=== PATIENT | female | born 1935 | race Caucasian/White ===

== ENCOUNTER → 2016-10-22 | Outpatient (CLI) | payer MEDICARE, OTHER ==
[~2016-10-22] MED LIST: ASPIRIN 81M81 MG/TA2 PO; CEPHALEXIN500 M1 PO; K-DUR20 MEQ PO; LASIX 20MG TABL20 MG PO; LOTENSIN40 MG PO; NORVASC 10MG10 MG PO; PREDNISONE20 MG PO; SYNTHROID0.1 MG/TAB PO; ZYLOPRIM 300MG300 MG; ZYLOPRIM 300MG300 MG PO
== END ==
LOC: MC.RAD 09:33
DX: Z12.31 Encounter for screening mammogram for malignant neoplasm of breast (principal)

== ENCOUNTER 2017-01-06 06:30 | Day surgery (SDC) | payer MEDICARE, OTHER ==
[~2017-01-06] VITALS: Ht 152.4 cm; Wt 90.0 kg
[~2017-01-06 06:30] MED LIST changes: -CEPHALEXIN500 M1 PO; -PREDNISONE20 MG PO; -ZYLOPRIM 300MG300 MG PO
[2017-01-06 07:21] VITALS: BP 148/92; PULSE 55; TEMP 97.1
[2017-01-06 07:25] LABS: HEMATOCRIT 41.2 % (37.0-47.0); HEMOGLOBIN 12.8 g/dl (12.5-16.0); MEAN CELL VOLUME 94 fl (80.0-100.0); MEAN CORPUSCULAR HEMOGLOBIN 29 pg (27.0-31.0); MEAN CORPUSCULAR HGB CONC 31 g/dl (33.0-37.0); MEAN PLATELET VOLUME 10.4 fl (7.4-10.4); PLATELET COUNT 251 K/mm3 (130-400); RED BLOOD COUNT 4.37 M/mm3 (4.10-5.30); REDCELL DISTRIBUTION WIDTH-CV 14.1 % (11.5-14.5); WHITE BLOOD COUNT 6.5 K/mm3 (4.8-10.8)
[2017-01-06 07:32] LABS: PROTHROMBIN TIME 11.6 SECONDS (9.7-12.8)
[2017-01-06] MEDS ORDERED: K-DUR20 MEQ PO (07:38)
[2017-01-06] MEDS ORDERED: LASIX 20MG TABL20 MG PO (07:38)
[2017-01-06 07:39] LABS: CALCIUM 10.4 mg/dL (8.4-10.2); CREATININE, serum 1.15 mg/dL (0.52-1.25); POTASSIUM 3.9 mmol/L (3.4-5.0)
[2017-01-06] MEDS ORDERED: LOTENSIN40 MG PO (07:39)
[2017-01-06] MEDS ORDERED: ZYLOPRIM 300MG300 MG PO (07:40)
[2017-01-06] MEDS ORDERED: SYNTHROID0.1 MG/TAB PO (07:41)
[2017-01-06] MEDS ORDERED: NORVASC 10MG10 MG PO (07:43)
[2017-01-06 09:11] VITALS: BP 175/84; PULSE 62
[2017-01-06] MEDS ORDERED: CEPHALEXIN500 M1 PO (10:10)
== END 2017-01-06 12:30 | disposition home or self-care (01) ==
LOC: COL.RAD 06:30 → EUO 06:30 → COL.RAD 07:00 → EUO 12:30
PROVIDERS: Internal Medicine Cardiovascular Disease
DX: Z45.010 Encounter for checking and testing of cardiac pacemaker pulse generator [battery] (principal); I48.91 Unspecified atrial fibrillation; R06.02 Shortness of breath
CPT/HCPCS: C1786; J0690; J2250; J3010

== ENCOUNTER 2017-06-27 08:41 | Emergency (ER) | payer MEDICARE, OTHER ==
[~2017-06-27] VITALS: Ht 152.4 cm; Wt 87.3 kg
[~2017-06-27 08:41] MED LIST changes: +CEPHALEXIN500 M1 PO; +ZYLOPRIM 300MG300 MG PO
[2017-06-27 08:43] VITALS: TEMP 97.6
[2017-06-27 09:36] LABS: BASO # 0.1 (0.0-0.2); BASO % 0.6 % (0.0-2.0); EOS # 0.2 (0.0-0.7); EOS % 2.2 % (0-4.0); GRAN # 6.1 (1.4-6.5); GRAN % 74.3 % (42.2-75.2); HEMATOCRIT 44.7 % (37.0-47.0); HEMOGLOBIN 14.5 g/dl (12.5-16.0); LYMPH # 0.8 (1.2-3.4); LYMPH % 9.5 % (20.0-51.0); MEAN CELL VOLUME 94 fl (80.0-100.0); MEAN CORPUSCULAR HEMOGLOBIN 31 pg (27.0-31.0); MEAN CORPUSCULAR HGB CONC 32 g/dl (33.0-37.0); MEAN PLATELET VOLUME 10.1 fl (7.4-10.4); MONO # 1.1 (0.1-0.6); MONO % 13.2 % (1.7-9.3); PLATELET COUNT 214 K/mm3 (130-400); RED BLOOD COUNT 4.76 M/mm3 (4.10-5.30); REDCELL DISTRIBUTION WIDTH-CV 14.1 % (11.5-14.5); WHITE BLOOD COUNT 8.2 K/mm3 (4.8-10.8)
[2017-06-27 09:45] LABS: CALCIUM 10.8 mg/dL (8.4-10.2); CREATININE, serum 1.01 mg/dL (0.52-1.25); POTASSIUM 3.9 mmol/L (3.4-5.0)
[2017-06-27] MEDS ORDERED: PREDNISONE20 MG PO (09:58)
[2017-06-27 11:02] VITALS: BP 178/80; PULSE 60
== END 2017-06-27 11:03 | disposition home or self-care (01) ==
LOC: COL.ER 08:41
PROVIDERS: Emergency Medicine
DX: M25.571 Pain in right ankle and joints of right foot (principal); M79.671 Pain in right foot; I48.91 Unspecified atrial fibrillation; I10 Essential (primary) hypertension; M10.9 Gout, unspecified; Z79.82 Long term (current) use of aspirin; Z95.0 Presence of cardiac pacemaker

== ENCOUNTER 2017-11-06 10:13 | Emergency (ER) | payer MEDICARE, OTHER ==
[~2017-11-06] VITALS: Ht 152.4 cm; Wt 89.1 kg
[~2017-11-06 10:13] MED LIST changes: +PREDNISONE20 MG PO
[2017-11-06 10:16] VITALS: TEMP 98.6
[2017-11-06 11:54] LABS: BASO # 0.1 (0.0-0.2); BASO % 0.7 % (0.0-2.0); EOS # 0.2 (0.0-0.7); GRAN # 5.4 (1.4-6.5); GRAN % 74.2 % (42.2-75.2); HEMATOCRIT 39.1 % (37.0-47.0); HEMOGLOBIN 11.9 g/dl (12.5-16.0); LYMPH # 0.7 (1.2-3.4); LYMPH % 9.8 % (20.0-51.0); MEAN CELL VOLUME 98 fl (80.0-100.0); MEAN CORPUSCULAR HEMOGLOBIN 30 pg (27.0-31.0); MEAN CORPUSCULAR HGB CONC 30 g/dl (33.0-37.0); MEAN PLATELET VOLUME 10.3 fl (7.4-10.4); MONO # 0.9 (0.1-0.6); PLATELET COUNT 250 K/mm3 (130-400); RED BLOOD COUNT 3.98 M/mm3 (4.10-5.30); REDCELL DISTRIBUTION WIDTH-CV 14.5 % (11.5-14.5)
[2017-11-06 12:05] LABS: ALBUMIN 3.5 gm/dL (3.5-5.0); BILIRUBIN,TOTAL 0.6 mg/dL (0.0-1.0); C-REACTIVE PROTEIN 3.1 mg/dL (0.0-0.9); CALCIUM 10.3 mg/dL (8.4-10.2); CREATININE, serum 0.97 mg/dL (0.52-1.25); POTASSIUM 4.1 mmol/L (3.4-5.0); TOTAL PROTEIN 6.8 gm/dL (6.4-8.2)
[2017-11-06] MEDS ORDERED: CEPHALEXIN500 M1 PO (12:52)
[2017-11-06 13:06] VITALS: BP 170/91; PULSE 60
== END 2017-11-06 13:07 | disposition home or self-care (01) ==
LOC: COL.ER 10:13
PROVIDERS: Emergency Medicine
DX: L03.116 Cellulitis of left lower limb (principal); Z79.82 Long term (current) use of aspirin

== ENCOUNTER → 2017-11-23 | Outpatient (CLI) | payer MEDICARE, OTHER | LOC: MC.RAD 11-22 13:20 | DX: Z12.31 Encounter for screening mammogram for malignant neoplasm of breast (principal) ==

== ENCOUNTER 2018-04-08 11:30 | Inpatient (IN) | payer MEDICARE, OTHER ==
[~2018-04-08] VITALS: Ht 147.3 cm; Wt 93.9 kg
[2018-04-08 11:57] LABS: BASO # 0.1 (0.0-0.2); EOS # 0.2 (0.0-0.7); EOS % 2.8 % (0-4.0); GRAN # 4.9 (1.4-6.5); GRAN % 69.8 % (42.2-75.2); HEMATOCRIT 38.3 % (37.0-47.0); LYMPH # 0.8 (1.2-3.4); LYMPH % 11.6 % (20.0-51.0); MEAN CELL VOLUME 88 fl (80.0-100.0); MEAN CORPUSCULAR HEMOGLOBIN 25 pg (27.0-31.0); MEAN CORPUSCULAR HGB CONC 29 g/dl (33.0-37.0); MEAN PLATELET VOLUME 9.9 fl (7.4-10.4); MONO % 13.9 % (1.7-9.3); PLATELET COUNT 307 K/mm3 (130-400); RED BLOOD COUNT 4.34 M/mm3 (4.10-5.30); REDCELL DISTRIBUTION WIDTH-CV 17.1 % (11.5-14.5)
[2018-04-08 12:02] LABS: INR 3.3 (0.8-3.0); PROTHROMBIN TIME 38.1 SECONDS (9.7-12.8)
[2018-04-08 12:05] LABS: ALBUMIN 3.7 gm/dL (3.5-5.0); BILIRUBIN,TOTAL 0.7 mg/dL (0.0-1.0); CALCIUM 10.4 mg/dL (8.4-10.2); CREATININE, serum 1.22 mg/dL (0.52-1.25); POTASSIUM 4.4 mmol/L (3.4-5.0); TOTAL PROTEIN 8.4 gm/dL (6.4-8.2)
[2018-04-08 12:17] LABS: TROPONIN-I 0.017 ng/mL (0.000-0.034)
[2018-04-08] MEDS ORDERED: NORVASC 10MG10 MG PO (12:17)
[2018-04-08] MEDS ORDERED: DESOWEN0.05% TOP (12:19)
[2018-04-08] MEDS ORDERED: COLACE 100100 MG/CAP PO (12:19)
[2018-04-08] MEDS ORDERED: LASIX 20MG TABL20 MG PO (12:21)
[2018-04-08] MEDS ORDERED: TOPROL XL 50MG50 MG PO (12:25)
[2018-04-08] MEDS ORDERED: MULTI VITAMINS1 TAB PO (12:26)
[2018-04-08] MEDS ORDERED: K-DUR 10 MEQ T10 MEQ PO (12:27)
[2018-04-08] MEDS ORDERED: TRIAMCINOLONE A15 GM TOP (12:28)
[2018-04-08 12:47] LABS: COLLECTION METHOD CATHETER
[2018-04-08 13:01] LABS: PARTIAL THROMBOPLASTIN TIME 228.9 SECONDS (26.0-37.0)
[2018-04-08 13:02] LABS: MUCOUS Present /lpf; PH 7 (5-8); SQUAMOUS EPITHELIAL 0-2 /hpf; URINE APPEARANCE Clear; URINE BACTERIA None Seen /hpf; URINE BILIRUBIN Negative (NEGATIVE); URINE BLOOD Negative (NEGATIVE); URINE COLOR Yellow; URINE GLUCOSE Negative (NEGATIVE); URINE KETONE Negative (NEGATIVE); URINE LEUKOCYTE ESTERASE Negative (NEGATIVE); URINE NITRATE Negative (NEGATIVE); URINE PROTEIN(semi-quant) Negative (NEGATIVE); URINE RBC 0-2 /hpf; URINE UROBILINOGEN Negative (NEGATIVE)
[2018-04-08 16:10] VITALS: BP 153/68; PULSE 60; TEMP 98.2
[2018-04-08 16:50] LABS: TSH w REFLEX 8.29 uIU/mL (0.465-4.680)
[2018-04-08 19:24] VITALS: BP 132/89; PULSE 59; TEMP 98
[2018-04-08 23:57] VITALS: BP 152/66; PULSE 60; TEMP 97.5
[2018-04-09 04:18] VITALS: BP 153/87; PULSE 59; TEMP 98.3
[2018-04-09 06:34] LABS: BASO # 0.1 (0.0-0.2); BASO % 0.9 % (0.0-2.0); EOS # 0.3 (0.0-0.7); EOS % 5.6 % (0-4.0); GRAN # 3.6 (1.4-6.5); GRAN % 64.5 % (42.2-75.2); HEMOGLOBIN 10.1 g/dl (12.5-16.0); LYMPH # 0.7 (1.2-3.4); MEAN CELL VOLUME 90 fl (80.0-100.0); MEAN CORPUSCULAR HEMOGLOBIN 26 pg (27.0-31.0); MEAN CORPUSCULAR HGB CONC 29 g/dl (33.0-37.0); MEAN PLATELET VOLUME 10.2 fl (7.4-10.4); MONO # 0.9 (0.1-0.6); MONO % 15.6 % (1.7-9.3); PLATELET COUNT 300 K/mm3 (130-400); RED BLOOD COUNT 3.93 M/mm3 (4.10-5.30); REDCELL DISTRIBUTION WIDTH-CV 17.1 % (11.5-14.5)
[2018-04-09 06:46] LABS: HEMATOCRIT 35.3 % (37.0-47.0)
[2018-04-09 06:54] LABS: CALCIUM 9.6 mg/dL (8.4-10.2); CREATININE, serum 1.25 mg/dL (0.52-1.25); MAGNESIUM 2.2 mg/dL (1.6-2.3); POTASSIUM 4.3 mmol/L (3.4-5.0)
[2018-04-09 07:17] LABS: INR 3.3 (0.8-3.0); PROTHROMBIN TIME 37.2 SECONDS (9.7-12.8)
[2018-04-09 07:54] VITALS: BP 140/57; PULSE 60; TEMP 98.2
[2018-04-09 12:26] VITALS: BP 124/59; PULSE 61; TEMP 98.2
[2018-04-09 16:12] VITALS: BP 120/75; PULSE 60; TEMP 98.8
[2018-04-09 19:11] VITALS: BP 122/63; PULSE 61; TEMP 98.4
[2018-04-10 00:22] VITALS: PULSE 60; TEMP 98
[2018-04-10 03:49] VITALS: BP 128/52; PULSE 59; TEMP 98.7
[2018-04-10 07:08] LABS: MEAN CELL VOLUME 90 fl (80.0-100.0); MEAN CORPUSCULAR HGB CONC 28 g/dl (33.0-37.0); MEAN PLATELET VOLUME 10.6 fl (7.4-10.4); PLATELET COUNT 299 K/mm3 (130-400); RED BLOOD COUNT 3.86 M/mm3 (4.10-5.30); REDCELL DISTRIBUTION WIDTH-CV 17.1 % (11.5-14.5)
[2018-04-10 07:09] LABS: HEMATOCRIT 34.9 % (37.0-47.0); HEMOGLOBIN 9.8 g/dl (12.5-16.0); MEAN CORPUSCULAR HEMOGLOBIN 25 pg (27.0-31.0)
[2018-04-10 07:13] LABS: INR 3.2 (0.8-3.0); PROTHROMBIN TIME 36.8 SECONDS (9.7-12.8)
[2018-04-10 07:26] LABS: BILIRUBIN,TOTAL 0.5 mg/dL (0.0-1.0); CALCIUM 9.2 mg/dL (8.4-10.2); CREATININE, serum 1.27 mg/dL (0.52-1.25); MAGNESIUM 2.2 mg/dL (1.6-2.3); POTASSIUM 4.4 mmol/L (3.4-5.0); TOTAL PROTEIN 6.6 gm/dL (6.4-8.2)
[2018-04-10 07:44] LABS: BAND 2 % (0-10); BASOPHIL 1 % (0-2); EOSINOPHIL 4 % (0-4); LYMPHOCYTE 8 % (20.0-51.0); NEUTROPHILS 73 % (42.0-75.2)
[2018-04-10 07:45] LABS: ANISOCYTOSIS 1+; HYPOCHROMIA 3+; PLATELET ESTIMATE NORMAL (NORMAL)
[2018-04-10 07:51] VITALS: BP 131/57; PULSE 61; TEMP 98.3
[2018-04-10 12:47] VITALS: BP 116/51; PULSE 61; TEMP 98.3
[2018-04-10 16:34] VITALS: BP 124/52; PULSE 59; TEMP 98.4
[2018-04-10 20:18] VITALS: BP 128/55; PULSE 81
[2018-04-11 00:29] VITALS: BP 112/49; PULSE 59; TEMP 98.1
[2018-04-11 03:44] VITALS: BP 132/55; PULSE 60; TEMP 98.1
[2018-04-11 07:06] LABS: HEMOGLOBIN 10.2 g/dl (12.5-16.0); MEAN CELL VOLUME 89 fl (80.0-100.0); MEAN CORPUSCULAR HEMOGLOBIN 26 pg (27.0-31.0); MEAN CORPUSCULAR HGB CONC 29 g/dl (33.0-37.0); MEAN PLATELET VOLUME 10.2 fl (7.4-10.4); PLATELET COUNT 287 K/mm3 (130-400); RED BLOOD COUNT 3.98 M/mm3 (4.10-5.30); REDCELL DISTRIBUTION WIDTH-CV 16.9 % (11.5-14.5)
[2018-04-11 07:11] LABS: HEMATOCRIT 35.4 % (37.0-47.0)
[2018-04-11 07:22] LABS: CALCIUM 9.5 mg/dL (8.4-10.2); CREATININE, serum 1.29 mg/dL (0.52-1.25); POTASSIUM 4.3 mmol/L (3.4-5.0)
[2018-04-11 07:24] LABS: PROTHROMBIN TIME 33.7 SECONDS (9.7-12.8)
[2018-04-11 07:55] VITALS: BP 132/57; PULSE 61; TEMP 98.1
[2018-04-11 08:32] LABS: BAND 4 % (0-10); BASOPHIL 2 % (0-2); EOSINOPHIL 4 % (0-4); LYMPHOCYTE 10 % (20.0-51.0); NEUTROPHILS 65 % (42.0-75.2)
[2018-04-11 08:33] LABS: PLATELET ESTIMATE NORMAL (NORMAL)
[2018-04-11 08:34] LABS: HYPOCHROMIA 3+
[2018-04-11 11:44] VITALS: BP 114/46; PULSE 59; TEMP 98.6
[2018-04-11 14:56] LABS: LUPUS ANTICOAGULANT INR 3.6 (()); LUPUS ANTICOAGULANT PT 40.3 sec (())
[2018-04-11 15:24] VITALS: BP 125/49; PULSE 62; TEMP 97.8
[2018-04-11 19:32] VITALS: BP 130/58; PULSE 62; TEMP 98.4
[2018-04-12 00:30] VITALS: BP 133/51; PULSE 59; TEMP 98.6
[2018-04-12 03:35] VITALS: PULSE 62; TEMP 98.1
[2018-04-12 07:32] LABS: BASO # 0.1 (0.0-0.2); BASO % 0.8 % (0.0-2.0); EOS # 0.3 (0.0-0.7); EOS % 5.4 % (0-4.0); GRAN # 4.2 (1.4-6.5); GRAN % 69.9 % (42.2-75.2); LYMPH # 0.6 (1.2-3.4); LYMPH % 9.7 % (20.0-51.0); MEAN CELL VOLUME 91 fl (80.0-100.0); MEAN CORPUSCULAR HEMOGLOBIN 25 pg (27.0-31.0); MEAN CORPUSCULAR HGB CONC 28 g/dl (33.0-37.0); MEAN PLATELET VOLUME 10.4 fl (7.4-10.4); MONO # 0.9 (0.1-0.6); PLATELET COUNT 318 K/mm3 (130-400); RED BLOOD COUNT 3.95 M/mm3 (4.10-5.30); REDCELL DISTRIBUTION WIDTH-CV 16.9 % (11.5-14.5)
[2018-04-12 07:36] LABS: HEMATOCRIT 35.9 % (37.0-47.0)
[2018-04-12 07:40] LABS: CALCIUM 9.7 mg/dL (8.4-10.2); CREATININE, serum 1.21 mg/dL (0.52-1.25); POTASSIUM 4.3 mmol/L (3.4-5.0)
[2018-04-12 07:59] VITALS: BP 131/50; PULSE 78; TEMP 98.4
[2018-04-12 08:59] LABS: INR 2.7 (0.8-3.0)
[2018-04-12 11:01] VITALS: BP 116/59; PULSE 58; TEMP 98.3
[2018-04-12] MEDS ORDERED: ALDACTONE50 MG PO (14:30)
[2018-04-12] MEDS ORDERED: LASIX 40MG TABL40 MG PO (14:31)
== END 2018-04-12 17:38 | disposition home or self-care (01) | DRG 291 ==
LOC: COL.ER 11:30 → MEDICAL 14:01
PROVIDERS: Emergency Medicine; Internal Medicine; Physician Assistant
DX: I11.0 Hypertensive heart disease with heart failure (principal); J18.9 Pneumonia, unspecified organism; J96.01 Acute respiratory failure with hypoxia; J90 Pleural effusion, not elsewhere classified; L03.119 Cellulitis of unspecified part of limb; J44.0 Chronic obstructive pulmonary disease with (acute) lower respiratory infection; I50.33 Acute on chronic diastolic (congestive) heart failure; I27.20 Pulmonary hypertension, unspecified; K59.00 Constipation, unspecified; E83.52 Hypercalcemia; I48.91 Unspecified atrial fibrillation; Z79.82 Long term (current) use of aspirin; E03.9 Hypothyroidism, unspecified; Z66 Do not resuscitate
CPT/HCPCS: 99223-AI; 99232-AI; 99233-AI; 99239; G0378; G8978-GP; G8979-GP; J0456; J0696; J1940; J7050

== ENCOUNTER → 2018-12-07 | Outpatient (CLI) | payer MEDICARE, OTHER ==
[~2018-12-07] MED LIST changes: +ALDACTONE50 MG PO; +COLACE 100100 MG/CAP PO; +DESOWEN0.05% TOP; +K-DUR 10 MEQ T10 MEQ PO; +LASIX 40MG TABL40 MG PO; +MULTI VITAMINS1 TAB PO; +TOPROL XL 50MG50 MG PO; +TRIAMCINOLONE A15 GM TOP
== END ==
LOC: MC.RAD 11:13
DX: Z12.31 Encounter for screening mammogram for malignant neoplasm of breast (principal)

== ENCOUNTER 2019-12-21 10:50 | Inpatient (IN) | payer MEDICARE, OTHER ==
[~2019-12-21] VITALS: Ht 152.4 cm; Wt 87.2 kg
[2019-12-21 12:11] LABS: BASO # 0.1 (0.0-0.2); BASO % 0.6 % (0.0-2.0); EOS # 0.2 (0.0-0.7); EOS % 2.2 % (0-4.0); GRAN # 6.7 (1.4-6.5); GRAN % 80.7 % (42.2-75.2); HEMATOCRIT 39.4 % (37.0-47.0); HEMOGLOBIN 11.6 g/dl (12.5-16.0); LYMPH # 0.6 (1.2-3.4); LYMPH % 7.3 % (20.0-51.0); MEAN CELL VOLUME 94 fl (80.0-100.0); MEAN CORPUSCULAR HEMOGLOBIN 28 pg (27.0-31.0); MEAN CORPUSCULAR HGB CONC 29 g/dl (33.0-37.0); MEAN PLATELET VOLUME 10.2 fl (7.4-10.4); MONO # 0.8 (0.1-0.6); MONO % 9.1 % (1.7-9.3); PLATELET COUNT 257 K/mm3 (130-400); RED BLOOD COUNT 4.19 M/mm3 (4.10-5.30); REDCELL DISTRIBUTION WIDTH-CV 15.8 % (11.5-14.5)
[2019-12-21 12:16] LABS: PROTHROMBIN TIME 12.2 SECONDS (9.7-12.8)
[2019-12-21 12:23] LABS: ALBUMIN 3.9 gm/dL (3.5-5.0); BILIRUBIN,TOTAL 0.7 mg/dL (0.0-1.0); CALCIUM 10.6 mg/dL (8.4-10.2); CREATININE, serum 1.09 (0.52-1.25); TOTAL PROTEIN 7.6 gm/dL (6.4-8.2)
[2019-12-21 12:33] LABS: TROPONIN-I 0.016 ng/mL (0.000-0.035)
[2019-12-21 16:25] VITALS: BP 193/79; PULSE 57; TEMP 97.8
[2019-12-21 21:47] VITALS: BP 162/61; PULSE 59; TEMP 97.7
[2019-12-22] VITALS (8 sets, daily range): BP systolic 154–187; BP diastolic 56–93; PULSE 59–88; TEMP 97.3–98.7
[2019-12-22 06:49] LABS: BASO % 0.2 % (0.0-2.0); GRAN # 7.7 (1.4-6.5); GRAN % 83.8 % (42.2-75.2); HEMATOCRIT 37.8 % (37.0-47.0); HEMOGLOBIN 11.2 g/dl (12.5-16.0); LYMPH # 0.6 (1.2-3.4); LYMPH % 6.7 % (20.0-51.0); MEAN CELL VOLUME 93 fl (80.0-100.0); MEAN CORPUSCULAR HEMOGLOBIN 28 pg (27.0-31.0); MEAN CORPUSCULAR HGB CONC 30 g/dl (33.0-37.0); MEAN PLATELET VOLUME 10.7 fl (7.4-10.4); MONO # 0.8 (0.1-0.6); MONO % 8.9 % (1.7-9.3); PLATELET COUNT 256 K/mm3 (130-400); RED BLOOD COUNT 4.05 M/mm3 (4.10-5.30); REDCELL DISTRIBUTION WIDTH-CV 15.6 % (11.5-14.5)
[2019-12-22 07:05] LABS: ALBUMIN 3.5 gm/dL (3.5-5.0); BILIRUBIN,TOTAL 0.6 mg/dL (0.0-1.0); CALCIUM 10.5 mg/dL (8.4-10.2); CHOLESTEROL RISK RATIO 3.7; CREATININE, serum 1.19 (0.52-1.25); POTASSIUM 4.2 mmol/L (3.4-5.0)
[2019-12-22] MEDS ORDERED: LASIX 20MG TABL20 MG PO (12:11)
[2019-12-23] VITALS (8 sets, daily range): BP systolic 132–158; BP diastolic 62–77; PULSE 59–64; TEMP 97.6–98.5
[2019-12-23 07:08] LABS: BASO % 0.5 % (0.0-2.0); EOS # 0.3 (0.0-0.7); EOS % 3.2 % (0-4.0); GRAN # 6.4 (1.4-6.5); GRAN % 71.8 % (42.2-75.2); HEMATOCRIT 37.5 % (37.0-47.0); HEMOGLOBIN 11.2 g/dl (12.5-16.0); LYMPH # 1.1 (1.2-3.4); LYMPH % 12.5 % (20.0-51.0); MEAN CELL VOLUME 93 fl (80.0-100.0); MEAN CORPUSCULAR HEMOGLOBIN 28 pg (27.0-31.0); MEAN CORPUSCULAR HGB CONC 30 g/dl (33.0-37.0); MEAN PLATELET VOLUME 10.7 fl (7.4-10.4); MONO % 11.8 % (1.7-9.3); PLATELET COUNT 268 K/mm3 (130-400); RED BLOOD COUNT 4.04 M/mm3 (4.10-5.30); REDCELL DISTRIBUTION WIDTH-CV 15.6 % (11.5-14.5)
[2019-12-23 07:28] LABS: CALCIUM 10.2 mg/dL (8.4-10.2); CREATININE, serum 1.13 (0.52-1.25); POTASSIUM 3.9 mmol/L (3.4-5.0)
[2019-12-24 04:14] VITALS: BP 156/67; PULSE 59; TEMP 98.1
[2019-12-24 07:38] VITALS: BP 158/81; PULSE 59; TEMP 97.7
[2019-12-24 12:19] VITALS: BP 149/59; PULSE 60; TEMP 97.5
== END 2019-12-24 16:53 | DRG 64 ==
LOC: COL.ER 10:50 → MEDICAL 13:50
PROVIDERS: Emergency Medicine; Physician Assistant; ADMIT Hospitalist
DX: I63.89 Other cerebral infarction (principal); J96.21 Acute and chronic respiratory failure with hypoxia; I48.20 Chronic atrial fibrillation, unspecified; I50.32 Chronic diastolic (congestive) heart failure; E03.9 Hypothyroidism, unspecified; Z96.653 Presence of artificial knee joint, bilateral; I11.0 Hypertensive heart disease with heart failure; I27.20 Pulmonary hypertension, unspecified; W19.XXXA Unspecified fall, initial encounter; Z66 Do not resuscitate; R59.9 Enlarged lymph nodes, unspecified; Z90.710 Acquired absence of both cervix and uterus; Z95.0 Presence of cardiac pacemaker
CPT/HCPCS: 99223-AI; 99231-AI; 99232-AI; 99239; J1200; J1940; J2930; Q9967

== ENCOUNTER 2019-12-24 14:34 | Inpatient (IN) | payer MEDICARE, OTHER ==
[~2019-12-24] VITALS: Ht 152.4 cm; Wt 88.3 kg
[2019-12-24 17:17] VITALS: BP 145/59; PULSE 61; TEMP 97.4
--- NOTE | 2019-12-24 17:30 | NUR ---
Pt arrvied to floor at this time from Medical. All belongings brought with medical staff. Pt oriented to room, resting in chair at side of bed with chair alarm on. Denies needs. Will give bedside shift report to nightshift nurse who will resume care.
--- NOTE | 2019-12-24 19:00 | NUR ---
PATIENT SITTING UP IN CHAIR DURING CHANGE OF SHIFT REPORT FROM DAY SHIFT NURSE. CHAIR ALARM ON. NO NEEDS REPORTED AT TIME OF REPORT. OXYGEN CONTINUES PER NASAL CANNULA.
--- NOTE | 2019-12-25 02:00 | NUR ---
PATIENT SLEEPING IN RECLINER CHAIR, DOES NOT AWAKEN WHEN ROOM ENTERED. CHAIR ALARM ON. BREATHING NONLABORED AND EVEN.
[2019-12-25 03:59] VITALS: BP 144/62; PULSE 59; TEMP 97.3
--- NOTE | 2019-12-25 08:08 | NUR ---
PATIENT UP IN CHAIR DURING CHANGE OF SHIFT REPORT GIVEN TO DAY SHIFT NURSE. CHAIR ALARM ON.
--- NOTE | 2019-12-25 10:56 | NUR ---
Patient refuses to sleep in bed at night, reporting that she has been sleeping in a recliner for years now. Patient was independent with pulling pants up and down, wiping self, and pulling pants back up. She was also able to take wet briefs off and put new briefs on independently. She was handed the brief, but did everything else herself.
--- NOTE | 2019-12-25 15:42 | NUR ---
SW attempted to complete initial intake. The patient had visitors and would like to complete intake at a later time.
[2019-12-25 16:46] VITALS: BP 136/57; PULSE 60; TEMP 98.1
--- NOTE | 2019-12-25 19:00 | NUR ---
PATIENT UP IN CHAIR DURING CHANGE OF SHIFT REPORT FROM DAY SHIFT NURSE. CHAIR ALARM ON.
--- NOTE | 2019-12-26 01:00 | NUR ---
PATIENT UP IN CHAIR, CHAIR ALARM ON. STATES SHE IS UNABLE TO STAY ASLEEP. DENIES ANY NEEDS AT THIS TIME.
[2019-12-26 04:25] VITALS: BP 153/69; PULSE 59; TEMP 98
--- NOTE | 2019-12-26 04:30 | NUR ---
OBSERVED O2 SAT AT 88% ON RA, O2 PUT BACK ON PATIENT AT 2 L/NC.
--- NOTE | 2019-12-26 07:36 | NUR ---
PATIENT SLEEPING IN RECLINER CHAIR, DURING CHANGE OF SHIFT REPORT GIVEN TO DAY SHIFT NURSE. CHAIR ALARM ON. PATIENT REPEATEDLY STATED THAT SHE NEEDED TO MAKE SURE SHE IS ABLE TO LEAVE [place]A FOUNTAIN OPERATOR ON WEDNESDAY, INFORMED DAY NURSE OF PATIENT'S CONCERNS.
--- NOTE | 2019-12-26 10:28 | NUR ---
Patient reported not sleeping well due to being worried about going home on Wednesday. Patient states that she will have a ride for Wednesday morning only and would need everything else to be ready for her to be discharged for sure this Wednesday. This nurse will follow up with Natalia and FAISAL to further provide assistance for patient regarding her concerns about up coming discharge.
--- NOTE | 2019-12-26 10:31 | NUR ---
Follow-up visit; Patient thanked Graphics Programmer for looking in on her and offering God's blessings.
--- NOTE | 2019-12-26 16:13 | NUR ---
Shingle Cutter met with patient to complete initial intake as patient is new to [facility]. Patient lives in [place] with her adult daughter, Madai who is disabled. Patient sees Dr. Hines for primary care and obtains needed medications from the [facility] pharmacy in [place]. Patient has a walker at home and has home oxygen. Patient states "not really" when SW asks if she has home oxygen set up at home. SW inquired about the home oxygen company patient uses and patient states she doesn't want to say and that she will just get it all worked out when she gets home. Patient states she needs to leave by either night or Wednesday morning. SW discussed scheduling a patient/family conference for tomorrow 12/27/19 at 1345. Patient agreeable to date and time but states she does not want to invite anyone from her support network to participate. Patient states she does not have family nearby but has a lot of friends. FAISAL provided date and time to Natalia, [facility] Director. SW to continue to follow to monitor for discharge needs.
[2019-12-26 17:07] VITALS: BP 154/63; PULSE 59; TEMP 98.1
--- NOTE | 2019-12-26 20:00 | NUR ---
BRUISING TO BACK OF BOTH HANDS FROM VENIPUNCTURES FROM ACUTE CARE STAY. CHAIR ALARM ON.
--- NOTE | 2019-12-26 20:00 | NUR ---
SEE ST CONSULTATION/EVALUATION IN PLACE OF BIMS.
--- NOTE | 2019-12-26 22:00 | NUR ---
Patient was seen by social service liaison today. Her daughter was brought up to her and stayed for the afternoon. Patient had one time that she did not use the call light and transferred herself from the bathroom to her recliner. She was educated on the need to use the call light and the high risk of falling. She voiced understanding and appologized for her actions. Patient continues to have to have ques to walking in the right direction. She seems to move to her right instead of forward. She also will position her hand under the soap dispenser to far forward and has to be qued to move hand back to catch the soap. She is able to wash hands by herself and dry them with no difficulty.
--- NOTE | 2019-12-26 23:47 | NUR ---
PATIENT SLEEPING SITTING UP IN RECLINER CHAIR, DOES NOT AWAKEN WHEN ROOM ENTERED BY STAFF AT THIS TIME. BREATHING NONLABORED AND EVEN. CHAIR ALARM ON.
--- NOTE | 2019-12-27 02:44 | NUR ---
USED CALL LIGHT TO HAVE STAFF AMBULATE PATIENT TO BATHROOM, RETURNED BACK TO RECLINER WITH NO OTHER NEEDS REPORTED AFTER VOIDING. OXYGEN CONTINUES PER NASAL CANNULA. CHAIR ALARM ON.
--- NOTE | 2019-12-27 03:46 | NUR ---
PATIENT SLEEPING IN RECLINER, DOES NOT AWAKEN WHEN ROOM ENTERED BY PAPER SUPERVISOR. BREATHING NONLABORED AND EVEN, OXYGEN CONTINUES PER NASAL CANNULA. CHAIR ALARM ON.
[2019-12-27 04:06] VITALS: BP 144/70; PULSE 58; TEMP 97.8
--- NOTE | 2019-12-27 07:00 | NUR ---
Report received from KAROL Reyes. PT in recliner at side bed resting without needs, will continue to monitor.
--- NOTE | 2019-12-27 07:29 | NUR ---
Patient up in recliner chair during change of shift report given to day shift nurse. Chair alarm on.
--- NOTE | 2019-12-27 08:00 | NUR ---
ASsessment charted. Pt denies pain. Legs are slightly swollen and tight, per pt they have been in dependent position all night. Pt denies pain. Oriented to everything, did not know day of week. Resting in chair, call light in reach and chair alarm on, will continue to monitor.
--- NOTE | 2019-12-27 16:34 | NUR ---
Senior Education Specialist attended family conference with patient's daughter, patient's friend, IPR Director Natalia, and PT/OT/ST. Natalia opened the meeting by explaining the purpose then PT/OT/ST reviewed patient's progress and recommendations. OT is recommending patient not drive or cook due to vision. Patient states that the driving restriction should only be temporary. Patient is insistent that she discharge home tomorrow although the therapy team feels she needs to stay longer. Even with therapy teams recommendation, patient still advised she is going home tomorrow. SW met with patient after the family conference and reviewed recommendation for Home Health. Patient informed SW that she can't make her accept HH. SW advised patient that is correct but HH is strongly recommended to ensure safe discharge. SW presented Medicare.gov list of HH agencies and patient selected [facility]. FAISAL contacted [facility] and faxed referral. SW inquired again about patient's oxygen provider. Patient does not remember but will research this and let SW know tomorrow. SW named a couple local providers but patient denies any are the company she uses. SW is awaiting exercise ox to determine if patient qualifies for home oxygen. Patient reports she recently started using home oxygen again. SW to continue to follow.
[2019-12-27 17:42] VITALS: BP 138/56; PULSE 61; TEMP 98.6
--- NOTE | 2019-12-27 18:18 | NUR ---
Pt has done well over shift. Did set off chair alarm several times today, states she does not like the constricting atmosphere of IPR and not being able to ambulate ad ezio. Discussed need for safety but pt still wishes it could be otherwise. Daughter and her screw machine tender at bedside today visiting for many hours. Doing well, denies needs, will give bedside shift report to nightshift nusre who will resume care.
--- NOTE | 2019-12-27 20:30 | NUR ---
Patient sits up in recliner. Offered snack and sandwich box/skim milk given. Denies pain.
--- NOTE | 2019-12-27 21:45 | NUR ---
Patient assisted standby assist with walker to the bathroom and into hospital gown. States will sleep in recliner.
--- NOTE | 2019-12-27 23:00 | NUR ---
Patient rests in recliner with eyes closed. Respirations with ease.
--- NOTE | 2019-12-28 02:00 | NUR ---
Patient has been resting in recliner with eyes closed.
[2019-12-28 04:22] VITALS: BP 141/59; PULSE 61; TEMP 97.7
--- NOTE | 2019-12-28 04:27 | NUR ---
PATIENT AWAKE AND UP TO THE BATHROOM WITH SUPERVISION. MANAGES ALL TOILETING TASKS. DENIES PAIN OR NEEDS.
[2019-12-28] MEDS ORDERED: ASPIRIN 81M81 MG/TA2 PO (08:20)
[2019-12-28] MEDS ORDERED: LIPITOR 10MG10 MG PO (08:20)
--- NOTE | 2019-12-28 11:47 | NUR ---
Direct Support Staff Member received a message from [facility] that advised they would have to decline referral at this time. FAISAL met with patient to follow up and patient selected [facility]. FAISAL contacted Lita at [facility] and faxed referral. Liat advised they could accept referral for PT/OT/ST. FAISAL reviewed exercise ox and patient qualifies for home oxygen. FAISAL met with patient who could not remember the name of the oxygen company she works with normally. Patient gave FAISAL permission to look in her phone contacts and SW found [employer]. SW faxed updated oxygen order, H&P, and RT assessment to [employer] who will deliver a tank to patient's room. FAISAL met again with patient to review DME recommendation for a shower chair. Patient states she already has a shower chair and other DME at home. FAISAL presented and explained IM form to patient who verbalized understanding and provided signature. FAISAL placed original in chart and provided copy to patient. FAISAL faxed discharge orders to [facility] and provided update to RNMaggie. Patient has transportation arrangements and will discharge today.
--- NOTE | 2019-12-28 14:00 | NUR ---
Patient spent most of the day in bedside recliner. Patient used call light and waited for assistance before going to the restroom and returning to her chair. Patient required cues when dressing and bathing, but was able to do both with SBA. Patient has denied pain or nausea. Discharge teaching completed, follow up appointments, discharge medications and home oxygen were discussed, patient verbalized understanding and denied questions or concerns. Patient and daughter escorted to ED entrance where patient entered a private vehicle.
--- NOTE | 2019-12-29 14:52 | NUR ---
Continuous Improvement Director was notified by Lita at [facility] that patient declined all services today. Patient discharged yesterday with orders for PT/OT/ST and [facility]. Lita advised she would follow up with patient next week. FAISAL contacted FAISAL Guevara at Dr. Hines's office to provide update. Patient has follow up appointment with Dr. Hines on Wednesday and Paola will follow up on Home Health need.
== END 2019-12-28 14:04 | disposition home or self-care (01) | DRG 56 ==
PROVIDERS: ADMIT Internal Medicine
DX: I69.351 Hemiplegia and hemiparesis following cerebral infarction affecting right dominant side (principal); I63.232 Cerebral infarction due to unspecified occlusion or stenosis of left carotid arteries; J96.21 Acute and chronic respiratory failure with hypoxia; I50.32 Chronic diastolic (congestive) heart failure; I48.91 Unspecified atrial fibrillation; I11.0 Hypertensive heart disease with heart failure; G47.33 Obstructive sleep apnea (adult) (pediatric); I27.20 Pulmonary hypertension, unspecified; Z66 Do not resuscitate; E03.9 Hypothyroidism, unspecified; M10.9 Gout, unspecified; W19.XXXD Unspecified fall, subsequent encounter; R59.0 Localized enlarged lymph nodes; Z79.82 Long term (current) use of aspirin; Z95.0 Presence of cardiac pacemaker; Z96.653 Presence of artificial knee joint, bilateral; Z90.710 Acquired absence of both cervix and uterus; Z88.6 Allergy status to analgesic agent
CPT/HCPCS: 99222-AI; 99231-AI; 99232-AI; 99239

== ENCOUNTER 2021-03-13 13:11 | Emergency (ER) | payer MEDICARE, OTHER ==
[~2021-03-13] VITALS: Ht 152.4 cm; Wt 84.5 kg
[~2021-03-13 13:11] MED LIST changes: +LIPITOR 10MG10 MG PO
[2021-03-13 13:26] VITALS: BP 147/67; TEMP 98.5
[2021-03-13 15:25] VITALS: PULSE 60
== END 2021-03-13 15:25 | disposition home or self-care (01) ==
LOC: COL.ER 13:11
DX: S40.012A Contusion of left shoulder, initial encounter (principal); M25.552 Pain in left hip; I50.9 Heart failure, unspecified; M10.9 Gout, unspecified; Z79.82 Long term (current) use of aspirin; W19.XXXA Unspecified fall, initial encounter; Y92.000 Kitchen of unspecified non-institutional (private) residence as the place of occurrence of the external cause

== ENCOUNTER 2021-10-26 09:38 | Inpatient (IN) | payer MEDICARE ==
[~2021-10-26] VITALS: Ht 152.4 cm; Wt 84.1 kg
[2021-10-26 10:18] LABS: BASO % 0.7 % (0.0-2.0); EOS # 0.1 K/mm3 (0.0-0.7); EOS % 0.9 % (0.0-4.0); GRAN % 71.2 % (42.2-75.2); HEMATOCRIT 37.7 % (37.0-47.0); HEMOGLOBIN 11.1 g/dl (12.5-16.0); LYMPH # 0.6 K/mm3 (1.2-3.4); LYMPH % 10.2 % (20.0-51.0); MEAN CELL VOLUME 94 fl (80.0-100.0); MEAN CORPUSCULAR HEMOGLOBIN 28 pg (27-31); MEAN CORPUSCULAR HGB CONC 29 g/dl (33.0-37.0); MEAN PLATELET VOLUME 10.6 fl (7.4-10.4); MONO # 0.9 K/mm3 (0.1-0.6); MONO % 16.8 % (1.7-9.3); PLATELET COUNT 214 K/mm3 (130-400); RED BLOOD COUNT 4.03 M/mm3 (4.10-5.30); REDCELL DISTRIBUTION WIDTH-CV 15.5 % (11.5-14.5)
[2021-10-26 10:37] LABS: BILIRUBIN,TOTAL 0.7 mg/dL (0.2-1.2)
[2021-10-26 10:53] LABS: ALBUMIN 3.2 gm/dL (3.4-4.8); CALCIUM 10.1 mg/dL (8.4-10.2); CREATININE, serum 1.14 mg/dL (0.57-1.11); POTASSIUM 4.3 mmol/L (3.5-4.5); TOTAL PROTEIN 6.9 gm/dL (6.2-8.1)
[2021-10-26 16:38] VITALS: BP 167/57; PULSE 60; TEMP 98.1
[2021-10-26 17:47] LABS: C-REACTIVE PROTEIN 2.4 mg/dL (0.00-0.50)
[2021-10-26 17:56] LABS: TROPONIN-I 0.026 ng/mL (0.00-0.033)
--- NOTE | 2021-10-26 18:33 | NUR ---
WHEN PT ARRIVED TO FLOOR SHE WAS INC OF URINE, BRIEF CHANGED AND PUREWICC PLACED, PT SWITCHED TO 6L NC SATTING 92%. ASSESSMENT PERFORMED, MEDICATIONS GIVEN, NO OTHER NEEDS
[2021-10-26 20:00] VITALS: BP 156/65; PULSE 60; TEMP 98.5
--- NOTE | 2021-10-26 23:39 | NUR ---
PT IS PLEASANT, ALERT IN BED. PT STATED SHE IS TIRED AND JUST WANTS TO SLEEP. ASSESSMENT COMPLETED, MED REC DONE DUE TO NOT BEING REVIEWED YET. PT WAS UNAWARE OF WHAT DOSES SHE TOOK FOR HER MEDICATION. PT TOOK ALL MEDICATIONS AND WENT TO SLEEP. NO OTHER NEEDS AT THIS TIME.
[2021-10-27] VITALS (7 sets, daily range): BP systolic 132–151; BP diastolic 48–63; PULSE 60–67; TEMP 97.3–98.3
--- NOTE | 2021-10-27 01:18 | NUR ---
AIDE WENT IN FOR MIDNIGHT VITALS, AFTER OPENING OUTER DOOR, AIDE HEARD PATIENT YELLING FOR HELP AND NEEDING TO GET OUT. PT FOUND TO HAVE OXYGEN ON FLOOR WELL CALL LIGHT. PT OXYGEN SATS WERE IN THE 70'S. RN WAS CALLED, CAME IN AND ASSESSED. BUMPED PATIENT TO 7 L, AND TAKE DEEP BREATHS IN THROUGH NOSE. PT COMPLIED, BUT KEPT STATING SHE NEEDED TO LEAVE. THIS RN ASKED IF PT WAS WORRIED ABOUT DAUGHTER, PT STATED YES, BUT ALSO EVERYONE. THIS RN ASKED PATIENT IF SHE KNEW WHERE SHE WAS AT THIS MOMENT, PT RESPONDED "[place], [place]" THIS RN REORIENTATED TO PT BEING IN THE HOSPITAL FOR COVID/CHF EXABERATION. PT LOOKED SHOCKED AT THIS NEWS. PT STILL ONLY SATTING 87%, THIS RN WENT TO 8 L HIGH FLOW. PT KEPT STATING SHE HAD TO LEAVE. THIS RN INFORMED PATIENT OF INCREASED OXYGEN NEEDS AND IT WOULD BE DEADLY IF SHE TRIED TO LEAVE RIGHT NOW. PT DENIED NEEDING ANYTHING FOR ANXIETY. OXYGEN AT 90% ON 8 L HIGH FLOW. PT CALMED AND AGREED TO TRY TO GO BACK TO SLEEP. BABY MONITOR PLACED IN PATIENT'S ROOM, PT CURRENTLY SLEEPING, WHEN WAKES WILL SAY "NEED TO GET OUT OF HERE". WILL CONTINUE TO MONITOR.
--- NOTE | 2021-10-27 06:44 | NUR ---
PT HAD AN OK NIGHT. PT HAD INTERMITTENT CONFUSION. ON 6 L NC.
--- NOTE | 2021-10-27 06:55 | NUR ---
SISTER IN LAW, KATERIN HWANG, STATES THAT SHE IS THE MOST RELIABLE FAMILY FOR UPDATES DUE TO PATIENT'S BROTHER BEING HARD OF HEARING AND UNABLE TO RECEIVE UPDATES. PT GAVE ER NURSE PERMISSION TO GIVE UPDATES. KATERIN AND HER LIVE IN [place]. HER PHONE NUMBER IS [phone]
[2021-10-27 07:19] LABS: BASO % 0.4 % (0.0-2.0); GRAN # 4.5 K/mm3 (1.4-6.5); GRAN % 79.1 % (42.2-75.2); HEMATOCRIT 39.2 % (37.0-47.0); HEMOGLOBIN 11.1 g/dl (12.5-16.0); LYMPH # 0.5 K/mm3 (1.2-3.4); LYMPH % 8.1 % (20.0-51.0); MEAN CELL VOLUME 96 fl (80.0-100.0); MEAN CORPUSCULAR HEMOGLOBIN 27 pg (27-31); MEAN CORPUSCULAR HGB CONC 28 g/dl (33.0-37.0); MEAN PLATELET VOLUME 10.9 fl (7.4-10.4); MONO # 0.7 K/mm3 (0.1-0.6); PLATELET COUNT 219 K/mm3 (130-400); RED BLOOD COUNT 4.07 M/mm3 (4.10-5.30); REDCELL DISTRIBUTION WIDTH-CV 15.3 % (11.5-14.5)
[2021-10-27 07:26] LABS: CALCIUM 10.2 mg/dL (8.4-10.2); CREATININE, serum 1.23 mg/dL (0.57-1.11); POTASSIUM 4.3 mmol/L (3.5-4.5)
--- NOTE | 2021-10-27 11:59 | NUR ---
PT SITTING UP IN RECLINER. MORNING MEDICATIONS GIVEN BY KAROL SINGH. SHIFT ASSESSMENT COMPLETED. DENIES ANY PAIN OR NEEDS. CURRENTLY ON 8L NC. WILL CONTINUE TO MONITOR.
--- NOTE | 2021-10-27 13:33 | NUR ---
The patient is COVID positive. SW contacted the patient to discuss discharge plan. The patient reports that she lives in [place]. The patient then sounded agitated at and asked, "why do you need to know all this information." She states that she lives with her adult handicap daughter and that she has a walker and home oxygen. When asked if her handicap daughter is safe at home, the patient stated, "you do not need to know anything about her and that she is fine." She reports that they are both fine at home and that she will be returning home with her daughter when she leaves here. The patient's PCP is Dr. Italo Hines. SW inquired about a DPOA-HC. The patient reports that she does have one, but she did not want to let FAISAL know who she designated. The patient's emergency contacts in EMR are Marco A Hurst (ph#[phone]) and Manisha Quiñones (ph#[phone]). FAISAL attempted to contact the lead case manager with Dr. Hines to inquire about an emergency contact they have on file for her or a DPOA-HC. SW left them a voicemail. *Discharge plan: home with daughter*
--- NOTE | 2021-10-27 21:00 | NUR ---
Patient is sitted in the chair, alert and oriented x 4, VSS, Denies pain, nausea or vomiting. Telemetry in place, NSR. Right now at 8L O2 HFNC. Pure weak in use. Assessment completed, medications provided. No further needs at this time. Baby monitor on. Call light in place.
[2021-10-28 00:08] VITALS: BP 151/62; PULSE 62; TEMP 97.9
[2021-10-28 04:35] VITALS: BP 116/71; PULSE 63; TEMP 98
[2021-10-28 06:09] LABS: BASO % 0.1 % (0.0-2.0); EOS % 0.1 % (0.0-4.0); GRAN % 81.2 % (42.2-75.2); HEMATOCRIT 37.4 % (37.0-47.0); HEMOGLOBIN 10.9 g/dl (12.5-16.0); LYMPH # 0.8 K/mm3 (1.2-3.4); LYMPH % 9.5 % (20.0-51.0); MEAN CELL VOLUME 94 fl (80.0-100.0); MEAN CORPUSCULAR HEMOGLOBIN 27 pg (27-31); MEAN CORPUSCULAR HGB CONC 29 g/dl (33.0-37.0); MEAN PLATELET VOLUME 10.4 fl (7.4-10.4); MONO # 0.8 K/mm3 (0.1-0.6); MONO % 8.9 % (1.7-9.3); PLATELET COUNT 214 K/mm3 (130-400); RED BLOOD COUNT 3.98 M/mm3 (4.10-5.30); REDCELL DISTRIBUTION WIDTH-CV 15.4 % (11.5-14.5)
--- NOTE | 2021-10-28 06:20 | NUR ---
Pt continues with 8L O2. She has accepted all medications. No further needs at this time. Report will be given to day RN.
[2021-10-28 06:35] LABS: CALCIUM 10.1 mg/dL (8.4-10.2); CREATININE, serum 1.17 mg/dL (0.57-1.11); POTASSIUM 4.4 mmol/L (3.5-4.5)
[2021-10-28 07:23] VITALS: BP 173/71; PULSE 60; TEMP 98
--- NOTE | 2021-10-28 07:35 | NUR ---
PT PLEASANT, AOX4, FORGETFUL, DENIES PAIN, KPAD UNDER PT'S BACK. PT BOOSTED IN BED, ASSESSMENT PERFORMED, MEDICATIONS GIVEN, PT CALL LIGHT WITHIN REACH, PURWICC DRAINING CLEAR YELLOW URINE, PT REPORTS NEEDING TO HAVE BM AND THEN SAYING "WELL I DON'T KNOW NOW". RW IV SITE CAUSING INC PAIN/DISCOMFORT. RW INT REMOVED, NEW SITE TO LH PLACED. NO OTHER NEEDS
--- NOTE | 2021-10-28 09:15 | NUR ---
PT CALLED ACCOUNTING CLERK LIGHT REPORTING NEEDING TO HAVE PT. PT [id number] WITH WALKER TO BEDSIDE COMMODE, PT HAD SOFT FORMED BM, PERICARE PROVIDED, CLEAN PURWICC PLACED, PT BOOSTED HERSELF IN BED WITH CUES FROM RN, BREAKFAST BROUGHT IN FOR PT, NO OTHER NEEDS
[2021-10-28 11:02] VITALS: BP 140/57; PULSE 59; TEMP 98.2
--- NOTE | 2021-10-28 11:56 | NUR ---
ATTEMPTED TO GIVE PT ROBITUSSIN, PT STATES "I DONT WANT THAT, THATS PLUGGING ME UP". EXPLAINED PT HAD A BM IN AM AND THEN SHE COUNTERED WITH "IT PLUGS UP MY CHEST". EDUCATED HER THAT IS LOOSENS SECRETIONS IN THE CHEST AND MAKES IT EASIER TO COUGH UP AND SHE SAID "NOPE. I DON'T WANNA BE TAKING ALL THESE MEDICATIONS I JUST WANT TO GET WELL AND GO HOME". TRIED TO EXPLAIN IT WOULD HELP HER GET BETTER AND SHES HERE TO TAKE MEDICATIONS AND GET BETTER BUT SHE ENDED UP STILL REFUSING.
--- NOTE | 2021-10-28 14:02 | NUR ---
PT IN ROOM WITH RT, RT CALLED NEUROPHYSIOLOGICAL TECHNICIAN LIGHT FOR NURSE TO ENTER, ACCORDING TO RT PT SATTING 70% ON RA, PT REFUSING TO PUT OXYGEN ON, PT ATTEMPTED TO PUNCH RESPIRATORY THERAPIST, PT VERY AGITATED AT THIS TIME, ON ARRIVAL OF RN PT STATED "I NEED TO GET HOME TO MY DAUGHTER", EXPLAINED TO PT IF SHE LEFT SHE MIGHT AND THEN WOULD HAVE NO ONE TO CARE FOR DAUGHTER, PT SHOUTED "YOU LET ME WORRY ABOUT THAT AND MAKE THOSE ARRANGEMENTS, I COULD HAVE BEFORE I CAME IN AND I CAN NOW". PORFIRIO PCT ENTERED ROOM AND ATTEMPTED TO GET PT TO WEAR OXYGEN, PT STILL REFUSING AND STATES "I ONLY WEAR MY OXYGEN AT HOME BECAUSE MY DOCTOR TELLS ME TOO". PT NOT LISTENING TO REASON AT THIS TIME. DR. CLARK NOTIFIED OF PT ATTEMPTING TO LEAVE, SAID HE WOULD TALK WITH PT FAMILY AND THEN BE UP TO SEE HER.
--- NOTE | 2021-10-28 15:43 | NUR ---
The patient became agitated and wanted to leave AMA. She stated she needed to get home to take care of her daughter. The hospitalist then met with the patient and she is agreeable to stay a couple more day. The patient's RN informed FAISAL that the patient said someone is looking after her daughter while here. FAISAL contacted Cayla, social media intern, with Dr. Hines to follow up about a DPOA-HC and emergency contact. Cayla reports that they do not have a DPOA-HC on file for the patient. She reports that the emergency contact they have on the file is her friends: Marco A Hurst and Kody Quiñones. She reports that they last saw the patient in July. She reports that Dr. Hines does see the patient's daughter. She reports that the patient's daughter has microcephaly and the RN would have a bit of concern if the patient was home alone. FAISAL attempted to contact the patient's personal phone number on file to follow up about arrangements for her daughter. The patient's friend, Manisha, answered the phone. Manisha reports that she is the one that brought the patient to the hospital. She reports that the patient does have someone taking care of her daughter while she is here. FAISAL made an APS report for the daughter. Intake ID#[id number].
[2021-10-28 15:51] VITALS: BP 146/57; PULSE 57; TEMP 97.9
--- NOTE | 2021-10-28 17:40 | NUR ---
PT PLEASANT, NOW AGREEABLE TO TREATMENT AND MEDICATION AFTER DR. CLARK TALKED TO HER, IN CHAIR AT THIS TIME WITH CALL LIGHT, NO OTHER NEEDS
[2021-10-28 21:01] VITALS: BP 148/52; PULSE 59; TEMP 97.8
--- NOTE | 2021-10-28 21:30 | NUR ---
Patient is on the chair, alert and oriented, hypertensive. States no changes from yesterday. Right now at 7L high flow NC. Assessment completed, snack and water provided. No further needs at this time. Call light within reach.
[2021-10-29] VITALS (7 sets, daily range): BP systolic 149–167; BP diastolic 57–78; PULSE 59–64; TEMP 97.4–98.7
--- NOTE | 2021-10-29 06:22 | NUR ---
Pt woke up at 4 am and was assisted to the chair. Before that time she was able to rest peacefully. Right now at 7L O2 high flow NC. Report will be given to day KAROL.
--- NOTE | 2021-10-29 06:23 | NUR ---
Call received from Regulo Green, (cell [phone]) stating he is the patient's DPOA.
[2021-10-29 09:38] LABS: BASO % 0.2 % (0.0-2.0); EOS % 0.1 % (0.0-4.0); GRAN # 6.3 K/mm3 (1.4-6.5); GRAN % 76.6 % (42.2-75.2); HEMATOCRIT 41.8 % (37.0-47.0); LYMPH % 12.1 % (20.0-51.0); MEAN CELL VOLUME 95 fl (80.0-100.0); MEAN CORPUSCULAR HEMOGLOBIN 27 pg (27-31); MEAN CORPUSCULAR HGB CONC 29 g/dl (33.0-37.0); MEAN PLATELET VOLUME 10.7 fl (7.4-10.4); MONO # 0.9 K/mm3 (0.1-0.6); MONO % 10.8 % (1.7-9.3); PLATELET COUNT 245 K/mm3 (130-400); RED BLOOD COUNT 4.39 M/mm3 (4.10-5.30); REDCELL DISTRIBUTION WIDTH-CV 15.3 % (11.5-14.5)
[2021-10-29 09:50] LABS: CALCIUM 10.1 mg/dL (8.4-10.2); CREATININE, serum 1.11 mg/dL (0.57-1.11); POTASSIUM 4.4 mmol/L (3.5-4.5)
--- NOTE | 2021-10-29 18:38 | NUR ---
PT UP TO CHAIR MOST OF SHIFT, STANDBY WITH WALKER TO BATHROOM WHEN NEEDED, PURWICC PLACED AND CHANGED PER ORDER, GOOD OUTPUT DURING SHIFT, MEDICATIONS GIVEN PER ORDER, PT DENIES PAIN, PT AGREEABLE TO TREATMENT, NO OTHER NEEDS
--- NOTE | 2021-10-29 21:45 | NUR ---
Patient is resting in bed, alert and oriented, continues with HTN. 3L O2 NC. Purewick in place. Assessment completed, medications provided. Pt cooperative with treatment. No other needs at this time. Call light within reach.
[2021-10-30 04:26] VITALS: BP 170/77; PULSE 69; TEMP 98.4
--- NOTE | 2021-10-30 06:30 | NUR ---
Patient has been hypertensive. She accepted all treatments. No major issues along the night. She has been able to sleep. Right now she is at 5L high flow NC. Shift report will be given to day RN.
[2021-10-30 06:54] LABS: BASO % 0.1 % (0.0-2.0); GRAN # 6.5 K/mm3 (1.4-6.5); GRAN % 78.6 % (42.2-75.2); HEMATOCRIT 40.3 % (37.0-47.0); HEMOGLOBIN 11.7 g/dl (12.5-16.0); LYMPH # 0.9 K/mm3 (1.2-3.4); LYMPH % 11.2 % (20.0-51.0); MEAN CELL VOLUME 95 fl (80.0-100.0); MEAN CORPUSCULAR HEMOGLOBIN 28 pg (27-31); MEAN CORPUSCULAR HGB CONC 29 g/dl (33.0-37.0); MEAN PLATELET VOLUME 11.5 fl (7.4-10.4); MONO # 0.8 K/mm3 (0.1-0.6); MONO % 9.7 % (1.7-9.3); PLATELET COUNT 243 K/mm3 (130-400); RED BLOOD COUNT 4.24 M/mm3 (4.10-5.30); REDCELL DISTRIBUTION WIDTH-CV 15.4 % (11.5-14.5)
[2021-10-30 07:28] LABS: ALBUMIN 2.8 gm/dL (3.4-4.8); CALCIUM 9.9 mg/dL (8.4-10.2); CREATININE, serum 1.05 mg/dL (0.57-1.11); MAGNESIUM 2.2 mg/dL (1.6-2.6); PHOSPHOROUS 3.1 mg/dL (2.3-4.7); POTASSIUM 4.6 mmol/L (3.5-4.5)
[2021-10-30 09:34] VITALS: BP 133/60; PULSE 67; TEMP 96.7
[2021-10-30 12:23] VITALS: BP 142/58; PULSE 62
[2021-10-30 15:31] VITALS: BP 132/54; PULSE 60; TEMP 97.8
[2021-10-30 19:50] VITALS: BP 160/69; PULSE 59; TEMP 97.5
--- NOTE | 2021-10-30 22:06 | NUR ---
ALERT AND OX3. DENIES SOA UNLESS AMBULATING. SETTING UP IN CHAIR. CLEANED UP GOWN CHANGED, PM MEDS GIVEN. CALL LIGHT WI REACH. NEEDS MET.
[2021-10-30 23:52] VITALS: BP 160/60; PULSE 59; TEMP 97.6
[2021-10-31 04:23] VITALS: BP 187/70; PULSE 61; TEMP 97.9
[2021-10-31 06:15] LABS: HEMATOCRIT 42.3 % (37.0-47.0); HEMOGLOBIN 12.6 g/dl (12.5-16.0); MEAN CELL VOLUME 92 fl (80.0-100.0); MEAN CORPUSCULAR HEMOGLOBIN 28 pg (27-31); MEAN CORPUSCULAR HGB CONC 30 g/dl (33.0-37.0); MEAN PLATELET VOLUME 11.3 fl (7.4-10.4); PLATELET COUNT 249 K/mm3 (130-400); RED BLOOD COUNT 4.59 M/mm3 (4.10-5.30); REDCELL DISTRIBUTION WIDTH-CV 15.1 % (11.5-14.5)
[2021-10-31 06:34] LABS: ALBUMIN 2.8 gm/dL (3.4-4.8); CALCIUM 10.4 mg/dL (8.4-10.2); CREATININE, serum 0.91 mg/dL (0.57-1.11); MAGNESIUM 2.2 mg/dL (1.6-2.6); PHOSPHOROUS 3.2 mg/dL (2.3-4.7); POTASSIUM 4.7 mmol/L (3.5-4.5)
[2021-10-31 07:43] LABS: BAND 6 % (0-10); LYMPHOCYTE 3 % (20.0-51.0); NEUTROPHILS 89 % (42.0-75.2); PLATELET ESTIMATE NORMAL (NORMAL)
--- NOTE | 2021-10-31 08:00 | NUR ---
Patient sitting up in bed, nursing staff assisted with boosting the patient in the bed. A&Ox3. VSS 4L NC O2, no reported SOB at rest. IV CDI. Droplet/contact precautions in place. Purewick in place. No further needs expressed. Call light within reach. Bed alarm on
[2021-10-31 08:10] VITALS: BP 175/63; PULSE 64; TEMP 97.4
[2021-10-31] MEDS ORDERED: ASPIRIN 81M81 MG/TA2 PO (11:07)
[2021-10-31] MEDS ORDERED: DECADRON6 MG PO (11:08)
[2021-10-31 11:23] VITALS: BP 144/60; PULSE 60; TEMP 97.2
--- NOTE | 2021-10-31 12:13 | NUR ---
PATIENT SP02>92% ON ROOM AIR WITHOUT AMBUALTION, SOON THE PATIENT EXERTS HERSELF SPO2 DROPPED IMMEDIATELY NEEDING 6L FOR SP02 TO REMAIN >92%.
--- NOTE | 2021-10-31 13:33 | NUR ---
The patient's RN notified FAISAL that the patient is on room air at rest, but needs 6 liters with ambulation. Her RN also informed FAISAL that she updated the patient's DPOA-HC, Regulo Gu (ph#[phone]). FAISAL contacted Steph, with the patient's oxygen supplier, [employer] and updated her on the above. Steph reports that they will switch out the patient's concentrator today with a high flow concentator, once the patient gets home. They would just like to know a tentative time the patient will get home. FAISAL then contacted Regulo Gu. Regulo reports that he is a friend of the family and is the patient's DPOA-HC. He reports that the form is at his home in [place]. FAISAL updated Regulo about the oxygen. Regulo reports that some other friends will be transporting the patient home today and will arrive at the hospital around 1600 and that will put them at the patient's home, safely around 1700. Regulo reports that they will not be able to picking supervisor one of the patient's portable tanks before they come and get the patient. He asked if [facility] [facility] can deliver a portable tank to the hospital. Regulo reports that they also have a couple of friends that are retired nurses that are going to check in on the patient and help look after her. Regulo also confirms that the patient's daughter has been staying with a family, that are intrusted with her care. FAISAL contacted Steph at [employer] about the portable tank. Steph reports that their advanced seal delivery system is in [place] and is unsure if he would be back by 1700. FAISAL updated the patient's RN. We will tentatively send the patient home with one of our portable tanks, if [employer] does not deliver one on time. The patient is to discharge back home today, 10/31. No additional needs at this time.
--- NOTE | 2021-10-31 13:47 | NUR ---
Adithya, with [employer], left SW a voicemail. He reports that the patient already has a 10 liter concentrator at home, so they will not need to come and switch it out.
[2021-10-31 13:58] VITALS: BP 168/87; PULSE 60
--- NOTE | 2021-10-31 14:57 | NUR ---
[facility] delivered the portable oxygen tank to the patient's room. SW notified the RN. No additional needs at this time.
[2021-10-31 15:27] LABS: TROPONIN-I 0.025 ng/mL (0.00-0.033)
[2021-10-31 15:43] VITALS: BP 149/62; PULSE 68; TEMP 97.2
[2021-10-31] MEDS ORDERED: PROTONIX 40MG T40 MG PO (16:00)
--- NOTE | 2021-10-31 16:40 | NUR ---
Discharge paperwork reviewed with the patient's DPOA. DPOA arranged a ride to pickling grader the patient. IV removed, tip intact, gauze and coban applied. Nurse assisted with getting the patient dressed and personal belongings gathered. Waiting on ride. Call light within reach
--- NOTE | 2021-10-31 18:00 | NUR ---
Nursing staff and RT tried to turn on the portable oxygen tank for the patient in 359. All were unable to turn the oxygen on for the patient to use to transfer home. MARGAUX Rajput and driver helper Merlyn notfied and aware and are okay with the patient not being on portable oxygen for the ride home. KAROL Akhtar house superivor notified and aware. Patient taken by wheelchair to the ED entrance to awaiting vehicle. No further needs expressed.
== END 2021-10-31 18:00 | disposition home or self-care (01) | DRG 177 ==
LOC: COL.ER 09:38 → MEDICAL 15:21
PROVIDERS: Family Medicine; Internal Medicine; Physician Assistant; ADMIT Student in an Organized Health Care Education/Training Program
PROC: XW033E5 Introduction of Remdesivir Anti-infective into Peripheral Vein, Percutaneous Approach, New Technology Group 5 (ICD-10-PCS; principal; 2021-10-27)
DX: U07.1 COVID-19 (principal); J96.21 Acute and chronic respiratory failure with hypoxia; I50.33 Acute on chronic diastolic (congestive) heart failure; I27.20 Pulmonary hypertension, unspecified; I11.0 Hypertensive heart disease with heart failure; M10.9 Gout, unspecified; E03.9 Hypothyroidism, unspecified; I48.91 Unspecified atrial fibrillation; Z96.653 Presence of artificial knee joint, bilateral; Z95.0 Presence of cardiac pacemaker; Z90.710 Acquired absence of both cervix and uterus; Z79.890 Hormone replacement therapy; Z79.82 Long term (current) use of aspirin; Z86.73 Personal history of transient ischemic attack (TIA), and cerebral infarction without residual deficits; Z23 Encounter for immunization
CPT/HCPCS: 99223-AI; 99232-AI; 99233-AI; 99239; J0248; J0696; J1100; J1644; J1940; J7030; J7050